=== PATIENT | male | born 1940 | race Caucasian/White ===

== ENCOUNTER 2016-10-19 09:25 | Emergency (ER) | payer OTHER, MEDICARE ==
[~2016-10-19] VITALS: Ht 182.9 cm; Wt 122.5 kg
--- NOTE | 2016-10-19 09:53 | ED GENERAL ADULT ---
History of Present Illness General Chief Complaint: General Adult Stated Complaint: CHOCKED AT [facility] / EMS RECOMMENDED BE SEEN Source: patient Exam Limitations: no limitations Vital Signs & Intake/Output Vital Signs & Intake/Output ED Intake and Output 10/20 0000 10/19 1200 Intake Total 0 Output Total Balance 0 Intake, Oral 0 Patient 270 lb Weight Allergies Coded Allergies: Sulfa (Sulfonamide Antibiotics) (Intermediate, RASH/HIVES 10/19/16) Triage Note: PT TO ED WITH C/O "I WAS AT [facility] AND I WAS EATING A BAGEL AND I HAVE A COLD, I STARTED TO COUGH, THEN CHOKE, ANOTHER PATRON GAVE ME THE HEIMLICH AND I STARTED TO BREATH AGAIN". Triage Nurses Notes Reviewed? yes Onset: Abrupt Duration: hour(s): Timing: single episode today HPI: 10/19/16 11:50 AM 76-year-old man presents to the emergency department status post episode of choking at [facility]. Someone actually performed the Heimlich maneuver and some mucus came out and a piece of donut. He is completely asymptomatic now in the emergency Department, no chest pain or shortness of breath. No complaints. Chest x-ray is negative and vital signs are stable, he has no chest wall tenderness and never had any chest pain. He is requesting something for his rhinorrhea. the onset of the symptoms were abrupt, the duration of the symptoms was earlier this afternoon, this severity was significant as his symptoms required to the emergency department for care. he has no associated chest pain or shortness of breath at this time. no abdominal pain. Past History Travel History Traveled to [place] past 21 day No Medical History Any Pertinent Medical History? 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 No Review of Systems Review of Systems Constitutional: Denies: fever. EENTM: Denies: visual changes. Respiratory: Denies: short of breath. Cardiovascular: Denies: chest pain. GI: Denies: abdominal pain. Genitourinary: Reports: no symptoms. Musculoskeletal: Reports: no symptoms. Skin: Denies: rash. Neurological/Psychological: Reports: no symptoms. Hematologic/Endocrine: Reports: no symptoms. Physical Exam Physical Exam General Appearance: no apparent distress, alert, awake, anxious Head: atraumatic, normal appearance Eyes: Bilateral: normal appearance, PERRL, EOMI. Ears, Nose, Throat: normal pharynx, normal ENT inspection Neck: normal inspection, supple, full range of motion Respiratory: normal breath sounds, chest non-tender, no respiratory distress Cardiovascular: regular rate/rhythm Peripheral Pulses: 4+ radial (R), 4+ radial (L) Gastrointestinal: soft, non-tender Back: normal range of motion Extremities: normal inspection, normal range of motion Neurologic/Psych: no motor/sensory deficits, awake, alert, oriented x 3 Skin: intact, normal color, warm/dry Core Measures ACS in differential dx? No CVA/TIA Diagnosis: No Severe Sepsis Present: No Septic Shock Present: No Progress Differential Diagnoses I considered the following diagnoses in my evaluation of the patient: [ rib fracture, pneumothorax, aspiration pneumonia, aspiration pneumonitis,] Plan of Care: PATIENT: ROJELIO DICKSON PRESENT AGE: 19 PATIENT ACCOUNT NO: [id number] : [birth year] LOCATION: [facility] ORDERING PHYSICIAN: BEVERLY LOVING DO SERVICE DATE: 10/19/161047 EXAM TYPE: RAD - XRY-KNEE COMPLETE RIGHT EXAMINATION: XR KNEE, RIGHT CLINICAL INFORMATION: Right knee pain. COMPARISON: None TECHNIQUE: Four views of the right knee. FINDINGS: There is a large joint effusion. No joint space narrowing. There is an ossification at the patella tendon insertion on the tibial tubercle which appears chronic. Correlate for point tenderness in this location. No fracture is demonstrated. chest x-ray negative. Initial ED EKG: none Departure Departure Disposition: HOME OR SELF CARE Condition: Stable Clinical Impression Primary Impression: History of airway aspiration Referrals: DIANA MARK MD (PCP/Family) Departure Forms: Customer Survey General Discharge Information Comments the patient was observed in the emergency department. He remained asymptomatic. Vital signs are stable. Chest x-ray was negative. He will follow-up with his doctor next week or return to the emergency department should any further symptoms develop Critical Care Note Critical Care Note Critical Care Time: non-applicable
--- NOTE | 2016-10-19 10:53 | RADIOLOGY REPORT ---
EXAMINATION: XR CHEST CLINICAL INFORMATION: Status post choking response. Evaluate for aspiration COMPARISON: None TECHNIQUE: 2 views of the chest were obtained. FINDINGS: No acute airspace opacity. Mild prominence of the right-sided epicardiac fat pad Cardia mediastinal silhouette is within normal limits. Degenerative changes of the thoracic spine. IMPRESSION: No acute pulmonary disease.
[2016-10-19 11:32] VITALS: BP 121/57
== END 2016-10-19 11:57 ==
LOC: ERH 09:25
DX: T17.228A Food in pharynx causing other injury, initial encounter (principal)